=== PATIENT | female | born 1950 | race Hispanic/Latino ===

== ENCOUNTER 2017-11-25 09:56 | Outpatient (CLI) | payer MEDICARE, BC ==
--- NOTE | 2017-11-25 11:41 | MMO ---
BILATERAL SCREENING MAMMOGRAM: HISTORY: Screening. The patient has a history of a lumpectomy. COMPARISON: Mammograms from 2016 and 2015. FINDINGS: Bilateral screening CC and MLO mammograms are performed with computer aided detection. Benign calcifications in both breasts. No suspicious mass, architectural distortion, or microcalcifi cations. IMPRESSION: BI-RADS 2: Benign findings. Continued annual mammographic screening recommended. POS: [facility]
== END 2017-11-25 09:57 | disposition home or self-care (01) ==
LOC: SCSMAMMO 09:56
PROVIDERS: ATTEND Nurse Practitioner
DX: Z12.31 Encounter for screening mammogram for malignant neoplasm of breast (principal)
CPT/HCPCS: 77067

== ENCOUNTER 2017-12-11 07:53 | Outpatient (CLI) | payer MEDICARE, BC ==
--- NOTE | 2017-12-11 11:09 | CT ---
CT ABDOMEN AND PELVIS WITHOUT AND WITH CONTRAST: Comparison: None. History: Abnormal liver mass seen on outside hospital ultrasound. Technique: Multiple contiguous axial images were obtained in a CT of the abdomen and pelvis without a nd with IV contrast. PO contrast was administered. Coronal reformats were performed. FINDINGS: The gallbladder has been removed. The liver has a nodular contour consistent with cirrhosis. A calcif ication in the spleen is likely secondary to prior granulomatous disease. The kidneys, adrenal glands , and pancreas are unremarkable. No focal liver masses are seen. No intrahepatic biliary dilatation i s seen. There is mild enlargement of the common bile duct which is likely reservoir affect from prior cholecystectomy. There is slight diverticula in the colon. The small bowel is unremarkable. No abdominal or pelvic lym phadenopathy are seen. Atherosclerotic calcifications are seen in the aorta. Degenerative changes are seen in the spine. The abdominal wall soft tissues and visualized inferior t horax are unremarkable. IMPRESSION: 1. Nodular contour of the liver is likely secondary to cirrhosis. No focal liver masses are seen. 2. Diverticulosis. POS: [facility]
[2017-12-11] MEDS ORDERED: Iopamidol 370 76% 100 ML VIAL ONE (16:39)
== END 2017-12-11 07:54 | disposition home or self-care (01) ==
LOC: CT 07:53
PROVIDERS: ATTEND Internal Medicine Gastroenterology
DX: K76.0 Fatty (change of) liver, not elsewhere classified (principal); R93.2 Abnormal findings on diagnostic imaging of liver and biliary tract; A04.8 Other specified bacterial intestinal infections; R79.9 Abnormal finding of blood chemistry, unspecified; K76.89 Other specified diseases of liver; K57.90 Diverticulosis of intestine, part unspecified, without perforation or abscess without bleeding
CPT/HCPCS: 72193; 74170; 82565

== ENCOUNTER 2018-12-28 12:03 | Outpatient (CLI) | payer MEDICARE, BC ==
--- NOTE | 2018-12-28 13:24 | RAD ---
TWO VIEWS LEFT HIP: DATE: 12/28/2018. PROVIDED CLINICAL HISTORY: Left hip pain. FINDINGS: Osteophyte formation is seen about the left hip. There is mild axial hip joint space loss. Alignmen t appears anatomic. No evidence for a fracture or other acute osseous abnormality. IMPRESSION: Left hip osteoarthrosis. POS: [facility]
--- NOTE | 2018-12-28 13:27 | RAD ---
TWO VIEWS OF THE RIGHT HP: DATE: 12/28/2018. PROVIDED CLINICAL HISTORY: Right hip pain. FINDINGS: Osteophytes are seen about the right hip. Right hip joint space appears preserved. There is no frac ture or other acute osseous abnormality evident. IMPRESSION: Mild right hip osteoarthritis. POS: [facility]
== END 2018-12-28 12:04 | disposition home or self-care (01) ==
LOC: RAD 12:03
PROVIDERS: ATTEND Neurological Surgery
DX: M25.551 Pain in right hip (principal); M25.552 Pain in left hip; M16.0 Bilateral primary osteoarthritis of hip

== ENCOUNTER 2019-03-25 09:05 | Outpatient (CLI) | payer MEDICARE, BC ==
--- NOTE | 2019-03-25 11:22 | RAD ---
3 views lumbar spine including lateral, flexion and extension views. HISTORY: Back pain for one year. 5 nonrib-bearing lumbar vertebra seen. Disc space height loss and anterior bridging osteophytes seen at the T11-12 level. Disc spaces are well-maintained. Anterior osteophytes seen involving the L1, L2, L3, L4 and L5 levels. No evidence of acute lumbar spine fracture seen. IMPRESSION: Changes of spondylosis with no evidence of antral or retrolisthesis on flexion or extensi on views.
--- NOTE | 2019-03-25 13:10 | MRI ---
MRI LUMBAR SPINE WITHOUT CONTRAST: INDICATIONS: Back pain. Lumbar stenosis with neurogenic pain. TECHNIQUE: Multiplanar, multisequential imaging of the lumbar spine obtained. FINDINGS: The lumbar vertebrae maintain height. Vertebral body signal is normal. No edema. Slight anterolisthesis at L4-L5. Alignment is otherwise preserved. Degenerative disk changes are se en with loss of T2 signal at all disk spaces. Endplate deformities are seen at L3-L4, involving both superior and inferior endplates. L1-L2: Mild disk bulge flattens the anterior thecal sac. Mild facet hypertrophy. No significant ce ntral canal or foraminal stenosis. L2-L3: Mild broad-based bulge flattens the thecal sac. Mild to moderate facet and ligamentous hyper trophy. Mild central canal stenosis. L3-L4: Mild diffuse disk bulge. Moderate facet and ligamentous hypertrophy. Mild central canal saul nosis. L4-L5: Slight anterolisthesis measured at 2 to 3 mm. Broad-based disk bulge. Prominent facet and l igamentous hypertrophy. Moderate central canal stenosis at this level. Bilateral foraminal stenosis secondary to broad-based bulge and facet hypertrophy. L5-S1: Mild broad-based disk bulge. Facet and ligamentous hypertrophy. No significant central john l stenosis. There is bilateral foraminal encroachment secondary to broad-based disk osteophyte compl ex and facet hypertrophy. This is slightly more pronounced to the left, where there appears to be co ntact with the exiting left L5 nerve root. IMPRESSION: 1. Moderate central canal stenosis at L4-L5, as described above. 2. Mild central canal stenosis at L2-L3 and at L3-L4, as noted above. POS: [facility]
== END 2019-03-25 09:06 | disposition home or self-care (01) ==
LOC: TBSIIMAG 09:05
PROVIDERS: ATTEND Anesthesiology Pain Medicine
DX: M48.062 Spinal stenosis, lumbar region with neurogenic claudication (principal); M47.816 Spondylosis without myelopathy or radiculopathy, lumbar region
CPT/HCPCS: 72100; 72148

== ENCOUNTER 2022-09-25 13:46 | Outpatient (CLI) | payer MEDICARE | END 2022-09-25 13:47 | disposition home or self-care (01) | LOC: BICRAD 13:46 | PROVIDERS: ATTEND Nurse Practitioner Family | DX: M54.50 Low back pain, unspecified (principal); M54.6 Pain in thoracic spine; M51.36 Other intervertebral disc degeneration, lumbar region; M47.816 Spondylosis without myelopathy or radiculopathy, lumbar region; M47.814 Spondylosis without myelopathy or radiculopathy, thoracic region | CPT/HCPCS: 72072; 72100 ==